=== PATIENT | female | born 1945 | race Caucasian/White ===

== ENCOUNTER → 2020-04-01 | Outpatient (CLI) | payer OTHER ==
[~2020-04-01] MED LIST: ALAVERT10 M1; ALPRAZOLAM0.25 MG; AMPICILLIN500 MG PO; ATENOLOL50 MG; FLAGYL250 MG PO; HYDROCODONE BIT1 T11 PO; HYZAAR 12.5 MG-1 TAB PO; HYZAAR 50/12.5M1 TAB; KLOR-CON 88 MEQ; LIDEX0.05% T; NAPROSYN500 MG PO; OMEPRAZOLE20 MG; PREDNICOT20 MG PO; VICODIN 500 MG-1 TAB PO; ZOFRAN ODT4 MG SL
== END | disposition home or self-care (01) ==
LOC: RAD 12:52
PROVIDERS: ATTEND Internal Medicine
DX: M19.071 Primary osteoarthritis, right ankle and foot (principal); M77.31 Calcaneal spur, right foot; M25.871 Other specified joint disorders, right ankle and foot

== ENCOUNTER → 2022-09-13 | Outpatient (CLI) | payer OTHER | END | disposition home or self-care (01) | LOC: RAD 01:43 | PROVIDERS: ATTEND Internal Medicine | DX: M85.89 Other specified disorders of bone density and structure, multiple sites (principal) ==